=== PATIENT | female | born 1960 | race Caucasian/White ===

== ENCOUNTER → 2017-11-30 14:15 | Outpatient (CLI) | payer OTHER, SELFPAY | DX: Z23 Encounter for immunization (principal) | CPT/HCPCS: 90471; 90686 ==

== ENCOUNTER → 2018-02-06 15:45 | Outpatient (CLI) | payer OTHER, SELFPAY ==
[2018-02-06 18:02] LABS: HEMOLYSIS < 15 (0-50); Iron 43 ug/dL (37-170)
[2018-02-06 18:14] LABS: Percent Iron Saturation 9 % (15-50); Total Iron Binding Capacity 462 ug/dL (265-497); Transferrin 395 mg/dL (206-381)
[2018-02-06 18:41] LABS: Ferritin 7.3 ng/mL (11.1-264)
== END ==
DX: D64.9 Anemia, unspecified (principal)
CPT/HCPCS: 36415; 82728; 83540; 83550

== ENCOUNTER → 2018-02-16 08:04 | Outpatient (CLI) | payer OTHER, SELFPAY ==
[2018-02-16 08:59] LABS: Hematocrit 36.3 % (36-46)
== END ==
PROVIDERS: Visit Provider Anesthesiology
DX: D64.9 Anemia, unspecified (principal)
CPT/HCPCS: 36415; 85014

== ENCOUNTER → 2018-12-13 15:13 | Outpatient (CLI) | payer OTHER, BC, SELFPAY | DX: Z23 Encounter for immunization (principal) | CPT/HCPCS: 90471; 90686 ==

== ENCOUNTER → 2019-11-20 07:06 | Outpatient (CLI) | payer BC, SELFPAY ==
[2019-11-20 08:40] LABS: Cholesterol 191 mg/dL (140-199); HDL Cholesterol 64 mg/dL (40-60); LDL Cholesterol Calculated 104 mg/dL (<100); Triglycerides 113 mg/dL (35-150)
== END ==
PROVIDERS: PCP Internal Medicine; Referring Provider Internal Medicine; Visit Provider Internal Medicine
DX: Z13.220 Encounter for screening for lipoid disorders (principal)
CPT/HCPCS: 36415; 80061